=== PATIENT | male | born 1995 | race Caucasian/White ===

== ENCOUNTER 2018-11-03 10:20 | Inpatient (IN) | payer OTHER ==
[2018-11-03 10:43] VITALS: BMI 28.8
--- NOTE | 2018-11-03 13:14 | HP ---
COWS - Scale Resting Pulse: 0= [place] 80 or Below Sweatin= Chills/Flushing Restless Observation: 1= Difficult to Sit Still Pupil Size: 1= Pupils >than Normal Bone or Joint Aches: 1= Mild Discomfort Runny Nose/ Eye Tearin= Constantly Teary/Runny GI Upset > 30mins: 2= Nausea/Diarrhea Tremor Observation: 0= None Yawning Observation: 2= >3x During Session Anxiety or Irritability: 1=Feels Anxious/Irritable Goose Flesh Skin: 0=Smooth Skin COWS Score: 13 CIWA Score - Admission Criteria OASAS Guidelines: Admission for Medically Managed Detox: Requires at least one of the followin. CIWA greater than 12 2. Seizures within the past 24 hours 3. Delirium tremens within the past 24 hours 4. Hallucinations within the past 24 hours 5. Acute intervention needed for co occurring medical disorder 6. Acute intervention needed for co occurring psychiatric disorder 7. Severe withdrawal that cannot be handled at a lower level of care (continued vomiting, continued diarrhea, abnormal vital signs) requiring intravenous medication and/or fluids 8. Admission ROS [facility] - [facility] Chief Complaint: " heroin detox" Allergies/Adverse Reactions: Allergies Allergy/AdvReac Type Severity Reaction Status Date / Time No Known Allergies Allergy Verified 10/31/16 19:50 History of Present Illness: 23 yo male with hx of heroin (nasal) dependence is here seeking detox d/t withdrawal symptoms. last detox [facility] 2016. PMHX:asthma. Denies psychiatric hx . Denies suicidal / homicidal ideation. Denies hx of seizure or overdose. Longest period of sobriety about two months. Exam Limitations: No Limitations - Ebola screening Have you traveled outside of the country in the last 21 days: No Have you had contact with anyone from an Ebola affected area: No Have you been sick,other than usual withdrawal symptoms: No Do you have a fever: No - Review of Systems Constitutional: Loss of Appetite, Changes in sleep, Other (fatigue) EENT: reports: Nose Congestion (runny nose) Respiratory: reports: No Symptoms reported Cardiac: reports: No Symptoms Reported GI: reports: Poor Appetite, Poor Fluid Intake, Vomiting : reports: No Symptoms Reported Musculoskeletal: reports: Back Pain, Muscle Pain Integumentary: reports: No Symptoms Reported Neuro: reports: No Symptoms reported, Weakness Endocrine: reports: Increased Thirst Hematology: reports: No Symptoms Reported Psychiatric: reports: Orientated x3, Anxious Other Systems: Reviewed and Negative Patient History - Patient Medical History Hx Anemia: No Hx Asthma: Yes (MDI) Hx Chronic Obstructive Pulmonary Disease (COPD): No Hx Cancer: No Hx Cardiac Disorders: No Hx Congestive Heart Failure: No Hx Hypertension: No Hx Hypercholesterolemia: No Hx Pacemaker: No HX Cerebrovascular Accident: No Hx Seizures: No Hx Dementia: No Hx Diabetes: No Hx Gastrointestinal Disorders: Yes (gastritis;GERD) Hx Liver Disease: No Hx Genitourinary Disorders: No Hx Sexually Transmitted Disorders: No Hx Renal Disease (ESRD): No Hx Thyroid Disease: No Hx Human Immunodeficiency Virus (HIV): No (declines testing today ) Hx Hepatitis C: No Hx Depression: Yes Hx Suicide Attempt: No (DENIES) Hx Bipolar Disorder: No Hx Schizophrenia: No - Patient Surgical History Past Surgical History: No Hx Neurologic Surgery: No Hx Cataract Extraction: No Hx Cardiac Surgery: No Hx Lung Surgery: No Hx Breast Surgery: No Hx Breast Biopsy: No Hx Abdominal Surgery: No Hx Appendectomy: No Hx Cholecystectomy: No Hx Genitourinary Surgery: No Hx Section: No Hx Orthopedic Surgery: No Anesthesia Reaction: No - PPD History Previous Implant?: No Documented Results: Negative w/proof Date: 11/03/16 PPD to be Administered?: Yes - Smoking Cessation Smoking history: Former smoker Have you smoked in the past 12 months: Yes Aproximately how many cigarettes per day: 0 Cigars Per Day: 0 Hx Chewing Tobacco Use: No Initiated information on smoking cessation: No - Substance & Tx. History Hx Alcohol Use: No Hx Substance Use: Yes Substance Use Type: Heroin Hx Substance Use Treatment: Yes ([facility] Detox 2017) - Substances Abused heroin Route: Inhalation Frequency: Daily Amount used: 1 bundle Age of first use: 21 Date of Last Use: 11/02/18 Family Disease History - Family Disease History Family History: Denies Admission Physical Exam BHS - Vital Signs Vital Signs: Vital Signs - 24 hr 11/03/18 10:41 Temperature 98.1 F Pulse Rate 78 Respiratory 18 Rate Blood Pressure 104/61 - Physical General Appearance: Yes: Appropriately Dressed, Mild Distress, Sweating, Anxious HEENTM: Yes: EOMI, Hearing grossly Normal, Normal ENT Inspection, Normocephalic , Normal Voice, MINE, Pharynx Normal, Other (Cheilitis) Respiratory: Yes: Chest Non-Tender, Lungs Clear, No Respiratory Distress, No Accessory Muscle Use, Wheezing Neck: Yes: Within Normal Limits Breast: Yes: Breast Exam Deferred Cardiology: Yes: Regular Rhythm, Regular Rate Abdominal: Yes: Normal Bowel Sounds, Non Tender, Flat, Soft Genitourinary: Yes: Within Normal Limits Back: Yes: Normal Inspection Musculoskeletal: Yes: full range of Motion, Gait Steady, Pelvis Stable Extremities: Yes: Normal Capillary Refill, Normal Inspection, Normal Range of Motion, Non-Tender Neurological: Yes: Fully Oriented, Alert, Depressed Affect Integumentary: Yes: Normal Color, Warm, Diaphoresis Lymphatic: Yes: Within Normal Limits - Diagnostic (1) Anxious mood Current Visit: Yes Status: Acute (2) At risk for dehydration due to poor fluid intake Current Visit: Yes Status: Acute (3) Opioid dependence with withdrawal Current Visit: Yes Status: Acute (4) Asthma Current Visit: Yes Status: Chronic Qualifiers: Asthma severity: mild Asthma persistence: intermittent Asthma complication type: with status asthmaticus Qualified Code(s): J45.22 - Mild intermittent asthma with status asthmaticus Cleared for Admission [facility] - Detox or Rehab [facility] Level of Care: Medically Managed Detox Regimen/Protocol: Methadone [facility] Breath Alcohol Content Breath Alcohol Content: 0 Urine Drug Screen - Results Drug Screen Negative: No Urine Drug Screen Results: OPI-Opiates, OXY-Oxycodone, FEN-Fentanyl Inpatient Rehab Admission - Rehab Decision to Admit Inpatient rehab admission?: No
[2018-11-03] MEDS ORDERED: MAGNESIUM HYDROX 2400MG/30ML ORAL SUSPENSION 30 ML CUP PO PRN (13:16)
[2018-11-03] MEDS ORDERED: guaiFENesin 200 MG/10 ML 10 ML UNIT-DOSE CUPS PO PRN (13:16)
[2018-11-03] MEDS ORDERED: MAGNESIUM CITRATE 300 ML BOTTLE PO PRN (13:16)
[2018-11-03] MEDS ORDERED: METHOCARBAMOL 500 MG TABLET PO PRN (13:16)
[2018-11-03] MEDS ORDERED: hydrOXYzine PAMOATE 25 MG CAPSULE (FP) PO PRN (13:16)
[2018-11-03] MEDS ORDERED: ALBUTEROL SO4 8 GM HFA INHALER IH PRN (13:16)
[2018-11-03] MEDS ORDERED: ONDANSETRON *ODT* 4 MG TABLET SL PRN (13:16)
[2018-11-03] MEDS ORDERED: P-EPHED 60MG/TRIPROLIDI 2.5MG TABLET PO PRN (13:16)
[2018-11-03] MEDS ORDERED: MAG HYDROX/AL HYDROX/SIMETH 30 ML UNIT-DOSE CUP PO PRN (13:16)
[2018-11-03] MEDS ORDERED: BISMUTH SUBSALICYLATE 262 MG/15 ML BTL PO PRN (13:16)
[2018-11-03] MEDS ORDERED: IBUPROFEN 400 MG TABLET (FP) PO PRN (13:16)
[2018-11-03] MEDS ORDERED: ACETAMINOPHEN 325 MG TABLET (FP) PO PRN ×2 (13:16)
[2018-11-03] MEDS: cloNIDine HCL 0.1 MG TABLET PO PRN (16:43)
[2018-11-03] MEDS: MELATONIN 5 MG TABLETS PO PRN (22:21)
[2018-11-03] MEDS: THIAMINE HCL 100 MG TABLET (FP) PO SCH (22:21)
[2018-11-03] MEDS ORDERED: METHADONE HCL 10 MG TABLET (FOR DETOX USE ONLY) PO ONE (23:00)
[2018-11-04] MEDS ORDERED: METHADONE HCL 10 MG TABLET (FOR DETOX USE ONLY) PO ONE (10:00)
[2018-11-04] MEDS: PRENATAL VITAMINS W/ FOLIC ACID TABLET (FP) PO SCH (10:22)
[2018-11-04 10:27] LABS: HEMATOCRIT 41.7 % (35.4-49); MCH 29.3 pg (25.7-33.7); MCHC 33.7 g/dl (32.0-35.9); MEAN CELL VOLUME 86.9 fl (80-96); MEAN PLT VOLUME 9.1 fl (7.5-11.1); PLATELET COUNT 223 K/MM3 (134-434); RBC 4.79 M/mm3 (4.00-5.60); WHITE BLOOD COUNT 7.4 K/mm3 (4.0-10.0)
[2018-11-04 10:42] LABS: ALBUMIN 4.3 g/dl (3.4-5.0); ALK PHOS 98 U/L (45-117); ANION GAP 6 MMOL/L (8-16); BILIRUBIN,TOTAL 0.2 mg/dL (0.2-1); BLOOD UREA NITROGEN 16 mg/dL (7-18); CHLORIDE 103 mmol/L (98-107); CO2 31 mmol/L (21-32); CREATININE 0.9 mg/dL (0.55-1.3); GLUCOSE,RANDOM 81 mg/dL (74-106); POTASSIUM 4.3 mmol/L (3.5-5.1); SGOT/AST 25 U/L (15-37); SGPT/ALT 52 U/L (13-61); SODIUM 139 mmol/L (136-145); TOT PROT 7.8 g/dl (6.4-8.2)
--- NOTE | 2018-11-04 11:02 | CONSULT ---
[facility] Psychiatric Consult - Data Date of interview: 11/04/18 Admission source: [facility] Identifying data: Patient is a 23 year old single male, without children, unemployed, domiciled, and attends [facility]. This is one of multiple admissions for patient. Patient admitted to for opiate dependence. Substance Abuse History: - Smoking Cessation. Smoking history: Former smoker. Have you smoked in the past 12 months: Yes. Aproximately how many cigarettes per day: 0. Cigars Per Day: 0. Hx Chewing Tobacco Use: No. Initiated information on smoking cessation: No. - Substance & Tx. History. Hx Alcohol Use: No. Hx Substance Use: Yes. Substance Use Type: Heroin. Hx Substance Use Treatment: Yes ([facility] Detox 2017). - Substances Abused. heroin. Route: Inhalation. Frequency: Daily. Amount used: 1 bundle. Age of first use: 21. Date of Last Use: 11/02/18 Medical History: Asthma, GERD Psychiatric History: Patient denies h/o psychiatric hosipitalization, outpatient care, and suicide attempt. Patient reports poor sleep. Physical/Sexual Abuse/Trauma History: denies. Mental Status Exam - Mental Status Exam Alert and Oriented to: Time, Place, Person Cognitive Function: Good Patient Appearance: Well Groomed Mood: Sad Affect: Mood Congruent Patient Behavior: Cooperative Speech Pattern: Appropriate Voice Loudness: Normal Thought Process: Intact, Goal Oriented Thought Disorder: Not Present Hallucinations: Denies Suicidal Ideation: Denies Homicidal Ideation: Denies Insight/Judgement: Poor Sleep: Poorly Appetite: Fair Muscle strength/Tone: Normal Gait/Station: Normal Psychiatric Findings - Problem List ([place] 1, 2,3) (1) Substance-induced sleep disorder Current Visit: Yes Status: Acute (2) Opioid dependence with withdrawal Current Visit: Yes Status: Acute (3) Substance induced mood disorder Current Visit: No Status: Acute - Initial Treatment Plan Initial Treatment Plan: Psychoeducation provided. Detoxification in progress. Will order Belsomra 10mg qhs. Benefits and side effects discussed. Verbal consent given.
--- NOTE | 2018-11-04 13:37 | EKG ---
Test Reason : Blood Pressure : / mmHG Vent. Rate : 066 BPM Atrial Rate : 066 BPM P-R Int : 176 ms QRS Dur : 088 ms QT Int : 396 ms P-R-T Axes : 048 075 037 degrees QTc Int : 415 ms NORMAL SINUS RHYTHM WITH SINUS ARRHYTHMIA NORMAL ECG WHEN COMPARED WITH ECG OF 01-NOV-2016 17:08, NO SIGNIFICANT CHANGE WAS FOUND Confirmed by MD KATHE, VALENTIN ([id number]) on 11/04/2018 1:37:29 PM Referred By: Confirmed By:VALENTIN ARCHULETA MD
--- NOTE | 2018-11-04 15:47 | PN ---
BHS COWS - Scale Resting Pulse: 0= [place] 80 or Below Sweatin= Chills/Flushing Restless Observation: 0= Sits Still Pupil Size: 0= Normal to Room Light Bone or Joint Aches: 1= Mild Discomfort Runny Nose/ Eye Tearin= Nasal Congestion GI Upset > 30mins: 1= Stomach Cramp Tremor Observation of Outstretched Hands: 1= Tremor [place], Not Seen Yawning Observation: 2= >3x During Session Anxiety or Irritability: 2=Irritable/Anxious Goose Flesh Skin: 0=Smooth Skin COWS Score: 9 BHS Progress Note (SOAP) Subjective: body aches stuffy nose back pain muscle cramping Objective: 11/04/18 15:48 Vital Signs Temperature 96.8 F L 11/04/18 13:35 Pulse Rate 63 11/04/18 13:35 Respiratory Rate 18 11/04/18 13:35 Blood Pressure 106/62 11/04/18 13:35 O2 Sat by Pulse Oximetry (%) Laboratory Last Values WBC 7.4 K/mm3 (4.0-10.0) 11/04/18 06:00 RBC 4.79 M/mm3 (4.00-5.60) 11/04/18 06:00 Hgb 14.0 GM/dL (11.7-16.9) 11/04/18 06:00 Hct 41.7 % (35.4-49) 11/04/18 06:00 MCV 86.9 fl (80-96) 11/04/18 06:00 MCH 29.3 pg (25.7-33.7) 11/04/18 06:00 MCHC 33.7 g/dl (32.0-35.9) 11/04/18 06:00 RDW 13.0 % (11.9-15.9) 11/04/18 06:00 Plt Count 223 K/MM3 (134-434) 11/04/18 06:00 MPV 9.1 fl (7.5-11.1) 11/04/18 06:00 Sodium 139 mmol/L (136-145) 11/04/18 06:00 Potassium 4.3 mmol/L (3.5-5.1) 11/04/18 06:00 Chloride 103 mmol/L (98-107) 11/04/18 06:00 Carbon Dioxide 31 mmol/L (21-32) 11/04/18 06:00 Anion Gap 6 MMOL/L (8-16) L 11/04/18 06:00 BUN 16 mg/dL (7-18) 11/04/18 06:00 Creatinine 0.9 mg/dL (0.55-1.3) 11/04/18 06:00 Creat Clearance w eGFR > 60 (>60) 11/04/18 06:00 Random Glucose 81 mg/dL (74-106) 11/04/18 06:00 Calcium 9.0 mg/dL (8.5-10.1) 11/04/18 06:00 Total Bilirubin 0.2 mg/dL (0.2-1) 11/04/18 06:00 AST 25 U/L (15-37) 11/04/18 06:00 ALT 52 U/L (13-61) 11/04/18 06:00 Alkaline Phosphatase 98 U/L (45-117) 11/04/18 06:00 Total Protein 7.8 g/dl (6.4-8.2) 11/04/18 06:00 Albumin 4.3 g/dl (3.4-5.0) 11/04/18 06:00 RPR Titer Nonreactive (NONREACTIVE) 11/04/18 06:00 HIV 1&2 Antibody Screen Negative 11/03/18 14:30 HIV P24 Antigen Negative 11/03/18 14:30 lab noted Assessment: 11/04/18 15:48 withdrawal sx Plan: continue detox
[2018-11-04] MEDS: cloNIDine HCL 0.1 MG TABLET PO PRN (17:03)
[2018-11-04 17:34] LABS: URINE APPEARANCE CLEAR; URINE BILIRUBIN NEGATIVE (<2.0 mg/dL); URINE COLOR LTYELLOW; URINE GLUCOSE (UA) NEGATIVE (NEGATIVE); URINE KETONE NEGATIVE (NEGATIVE); URINE LEUK ESTERASE NEGATIVE (NEGATIVE); URINE NITRITE NEGATIVE (NEGATIVE); URINE PROTEIN NEGATIVE (NEGATIVE); URINE UROBILINOGEN NEGATIVE mg/dL (0.2-1.0)
[2018-11-04] MEDS: THIAMINE HCL 100 MG TABLET (FP) PO SCH (22:03)
[2018-11-04] MEDS: GABAPENTIN 100 MG CAPSULE (FP) PO SCH (22:03)
[2018-11-04] MEDS: SUVOREXANT 10 MG TABLET PO PRN (22:05)
[2018-11-05] MEDS: GABAPENTIN 100 MG CAPSULE (FP) PO SCH ×2 (06:22→13:09)
[2018-11-05] MEDS ORDERED: METHADONE HCL 10 MG TABLET (FOR DETOX USE ONLY) PO ONE (10:00)
[2018-11-05] MEDS: PRENATAL VITAMINS W/ FOLIC ACID TABLET (FP) PO SCH (10:28)
[2018-11-05] MEDS: hydrOXYzine PAMOATE 25 MG CAPSULE (FP) PO PRN ×2 (10:31→17:57)
--- NOTE | 2018-11-05 14:51 | PN ---
BHS COWS - Scale Resting Pulse: 0= [place] 80 or Below Sweatin= Chills/Flushing Restless Observation: 0= Sits Still Pupil Size: 0= Normal to Room Light Bone or Joint Aches: 1= Mild Discomfort Runny Nose/ Eye Tearin= Nasal Congestion GI Upset > 30mins: 1= Stomach Cramp Tremor Observation of Outstretched Hands: 1= Tremor [place], Not Seen Yawning Observation: 1= 1-2x During Session Anxiety or Irritability: 1=Feels Anxious/Irritable Goose Flesh Skin: 0=Smooth Skin COWS Score: 7 BHS Progress Note (SOAP) Subjective: tremor body ache muscle cramp sweating Objective: 11/05/18 14:52 Vital Signs Temperature 97.3 F L 11/05/18 13:20 Pulse Rate 71 11/05/18 13:20 Respiratory Rate 18 11/05/18 13:20 Blood Pressure 108/70 11/05/18 13:20 O2 Sat by Pulse Oximetry (%) Laboratory Last Values WBC 7.4 K/mm3 (4.0-10.0) 11/04/18 06:00 RBC 4.79 M/mm3 (4.00-5.60) 11/04/18 06:00 Hgb 14.0 GM/dL (11.7-16.9) 11/04/18 06:00 Hct 41.7 % (35.4-49) 11/04/18 06:00 MCV 86.9 fl (80-96) 11/04/18 06:00 MCH 29.3 pg (25.7-33.7) 11/04/18 06:00 MCHC 33.7 g/dl (32.0-35.9) 11/04/18 06:00 RDW 13.0 % (11.9-15.9) 11/04/18 06:00 Plt Count 223 K/MM3 (134-434) 11/04/18 06:00 MPV 9.1 fl (7.5-11.1) 11/04/18 06:00 Sodium 139 mmol/L (136-145) 11/04/18 06:00 Potassium 4.3 mmol/L (3.5-5.1) 11/04/18 06:00 Chloride 103 mmol/L (98-107) 11/04/18 06:00 Carbon Dioxide 31 mmol/L (21-32) 11/04/18 06:00 Anion Gap 6 MMOL/L (8-16) L 11/04/18 06:00 BUN 16 mg/dL (7-18) 11/04/18 06:00 Creatinine 0.9 mg/dL (0.55-1.3) 11/04/18 06:00 Creat Clearance w eGFR > 60 (>60) 11/04/18 06:00 Random Glucose 81 mg/dL (74-106) 11/04/18 06:00 Calcium 9.0 mg/dL (8.5-10.1) 11/04/18 06:00 Total Bilirubin 0.2 mg/dL (0.2-1) 11/04/18 06:00 AST 25 U/L (15-37) 11/04/18 06:00 ALT 52 U/L (13-61) 11/04/18 06:00 Alkaline Phosphatase 98 U/L (45-117) 11/04/18 06:00 Total Protein 7.8 g/dl (6.4-8.2) 11/04/18 06:00 Albumin 4.3 g/dl (3.4-5.0) 11/04/18 06:00 Urine Color Ltyellow 11/04/18 15:45 Urine Appearance Clear 11/04/18 15:45 Urine pH 6.0 (5.0-8.0) 11/04/18 15:45 Ur Specific [place] 1.021 (1.010-1.035) 11/04/18 15:45 Urine Protein Negative (NEGATIVE) 11/04/18 15:45 Urine Glucose (UA) Negative (NEGATIVE) 11/04/18 15:45 Urine Ketones Negative (NEGATIVE) 11/04/18 15:45 Urine Blood Negative (NEGATIVE) 11/04/18 15:45 Urine Nitrite Negative (NEGATIVE) 11/04/18 15:45 Urine Bilirubin Negative (<2.0 mg/dL) 11/04/18 15:45 Urine Urobilinogen Negative mg/dL (0.2-1.0) 11/04/18 15:45 Ur Leukocyte Esterase Negative (NEGATIVE) 11/04/18 15:45 RPR Titer Nonreactive (NONREACTIVE) 11/04/18 06:00 HIV 1&2 Antibody Screen Negative 11/03/18 14:30 HIV P24 Antigen Negative 11/03/18 14:30 lab noted Assessment: 11/05/18 14:52 wtihdrawal sx Plan: continue detox
[2018-11-05] MEDS ORDERED: GABAPENTIN 100 MG CAPSULE (FP) PO PRN (19:13)
[2018-11-05] MEDS: THIAMINE HCL 100 MG TABLET (FP) PO SCH (21:57)
[2018-11-05] MEDS: MELATONIN 5 MG TABLETS PO PRN (21:57)
[2018-11-05] MEDS: SUVOREXANT 10 MG TABLET PO PRN (21:57)
[2018-11-06 09:15] VITALS: BP 110/72; PULSE 86; TEMP 97.4
[2018-11-06] MEDS: PRENATAL VITAMINS W/ FOLIC ACID TABLET (FP) PO SCH (09:32)
[2018-11-06] MEDS ORDERED: METHADONE HCL 10 MG TABLET (FOR DETOX USE ONLY) PO ONE (10:00)
--- NOTE | 2018-11-06 18:49 | PN ---
BHS Progress Note (SOAP) Subjective: Patient denies current Withdrawal / Detox symptoms and reports that he feels well overall. Objective: PATIENT A & O X 3, OBSERVED AMBULATING ON UNIT. IN NO ACUTE DISTRESS. 11/06/18 18:47 Vital Signs Temperature 97.4 F L 11/06/18 09:14 Pulse Rate 86 11/06/18 09:14 Respiratory Rate 18 11/06/18 09:14 Blood Pressure 110/72 11/06/18 09:14 O2 Sat by Pulse Oximetry (%) Laboratory Tests 11/03/18 11/04/18 11/04/18 14:30 06:00 06:00 WBC 7.4 RBC 4.79 Hgb 14.0 Hct 41.7 MCV 86.9 MCH 29.3 MCHC 33.7 RDW 13.0 Plt Count 223 MPV 9.1 Sodium 139 Potassium 4.3 Chloride 103 Carbon Dioxide 31 Anion Gap 6 L BUN 16 Creatinine 0.9 Creat Clearance w eGFR > 60 Random Glucose 81 Calcium 9.0 Total Bilirubin 0.2 AST 25 ALT 52 Alkaline Phosphatase 98 Total Protein 7.8 Albumin 4.3 Urine Color Urine Appearance Urine pH Ur Specific [place] Urine Protein Urine Glucose (UA) Urine Ketones Urine Blood Urine Nitrite Urine Bilirubin Urine Urobilinogen Ur Leukocyte Esterase RPR Titer HIV 1&2 Antibody Screen Negative HIV P24 Antigen Negative 11/04/18 11/04/18 06:00 15:45 WBC RBC Hgb Hct MCV MCH MCHC RDW Plt Count MPV Sodium Potassium Chloride Carbon Dioxide Anion Gap BUN Creatinine Creat Clearance w eGFR Random Glucose Calcium Total Bilirubin AST ALT Alkaline Phosphatase Total Protein Albumin Urine Color Ltyellow Urine Appearance Clear Urine pH 6.0 Ur Specific [place] 1.021 Urine Protein Negative Urine Glucose (UA) Negative Urine Ketones Negative Urine Blood Negative Urine Nitrite Negative Urine Bilirubin Negative Urine Urobilinogen Negative Ur Leukocyte Esterase Negative RPR Titer Nonreactive HIV 1&2 Antibody Screen HIV P24 Antigen LABS NOTED. Assessment: 11/06/18 18:48 COMPLETION OF DETOX REGIMEN. Plan: PATIENT DENIES CURRENT WITHDRAWAL SYMPTOMS AND REPORTS THAT HE FEELS WELL OVERALL. AT PATIENT'S REQUEST, PATIENT GRANTED EARLY DISCHARGE FROM DETOX UNIT.
--- NOTE | 2018-11-06 18:54 | DS ---
[facility] Detox Discharge Summary Admission Date: 11/03/18 Discharge Date: 11/06/18 - History Present History: Opioid Dependence Additional Comments: PATIENT DENIES CURRENT DETOX / WITHDRAWAL SYMPTOMS AND REPORTS THAT HE FEELS WELL OVERALL. AT PATIENT'S REQUEST, PATIENT GRANTED EARLY DISCHARGE FROM DETOX UNIT. PATIENT WILL GO TO [facility] ([place], [place]) FOR AFTERCARE. PATIENT DECLINED OFFER OF MEDICATION PRESCRIPTION FOR HOME MEDICATION (INCLUDING NARCAN KIT) AT TIME OF DISCHARGE FROM DETOX, NOTING THAT HE CURRENTLY HAS ADEQUATE SUPPLIES OF ALL PRESCRIBED HOME MEDICATIONS AT HOME. PATIENT WAS DISCHARGED FROM DETOX UNIT IN STABLE MEDICAL CONDITION. Pertinent Past History: Asthma, G.E.R.D., History of Gastritis, History of Depression, - Physical Exam Results Vital Signs: Vital Signs Temperature 97.4 F L 11/06/18 09:14 Pulse Rate 86 11/06/18 09:14 Respiratory Rate 18 11/06/18 09:14 Blood Pressure 110/72 11/06/18 09:14 O2 Sat by Pulse Oximetry (%) Pertinent Admission Physical Exam Findings: WITHDRAWAL SYMPTOMS. Laboratory Tests 11/03/18 11/04/18 11/04/18 14:30 06:00 06:00 WBC 7.4 RBC 4.79 Hgb 14.0 Hct 41.7 MCV 86.9 MCH 29.3 MCHC 33.7 RDW 13.0 Plt Count 223 MPV 9.1 Sodium 139 Potassium 4.3 Chloride 103 Carbon Dioxide 31 Anion Gap 6 L BUN 16 Creatinine 0.9 Creat Clearance w eGFR > 60 Random Glucose 81 Calcium 9.0 Total Bilirubin 0.2 AST 25 ALT 52 Alkaline Phosphatase 98 Total Protein 7.8 Albumin 4.3 Urine Color Urine Appearance Urine pH Ur Specific [place] Urine Protein Urine Glucose (UA) Urine Ketones Urine Blood Urine Nitrite Urine Bilirubin Urine Urobilinogen Ur Leukocyte Esterase RPR Titer HIV 1&2 Antibody Screen Negative HIV P24 Antigen Negative 11/04/18 11/04/18 06:00 15:45 WBC RBC Hgb Hct MCV MCH MCHC RDW Plt Count MPV Sodium Potassium Chloride Carbon Dioxide Anion Gap BUN Creatinine Creat Clearance w eGFR Random Glucose Calcium Total Bilirubin AST ALT Alkaline Phosphatase Total Protein Albumin Urine Color Ltyellow Urine Appearance Clear Urine pH 6.0 Ur Specific [place] 1.021 Urine Protein Negative Urine Glucose (UA) Negative Urine Ketones Negative Urine Blood Negative Urine Nitrite Negative Urine Bilirubin Negative Urine Urobilinogen Negative Ur Leukocyte Esterase Negative RPR Titer Nonreactive HIV 1&2 Antibody Screen HIV P24 Antigen LABS NOTED. - Treatment Hospital Course: Detox Protocol Followed, Detoxed Safely, Responded well, Discharged Condition Good Patient has Accepted a Rehab Referral to: PT. GOING TO [facility] ([place], [place]). - Medication Discharge Medications: Ambulatory Orders Albuterol Sulfate Inhaler - [Ventolin HFA Inhaler -] 2 puff IH Q4H PRN #1 inhaler 11/06/16 Naloxone HCl [Narcan] 4 mg NS ASDIR PRN 11/04/18 - Diagnosis (1) Anxious mood Status: Acute (2) At risk for dehydration due to poor fluid intake Status: Acute (3) Opioid dependence with withdrawal Status: Acute (4) Substance induced mood disorder Status: Acute (5) Substance-induced sleep disorder Status: Acute (6) Asthma Status: Chronic Qualifiers: Asthma severity: mild Asthma persistence: intermittent Asthma complication type: with status asthmaticus Qualified Code(s): J45.22 - Mild intermittent asthma with status asthmaticus - AMA Did Patient Leave Against Medical Advice: No
[2018-11-07] MEDS ORDERED: METHADONE HCL 5 MG TABLET (FOR DETOX USE ONLY) PO ONE (06:00)
== END 2018-11-06 13:32 | disposition home or self-care (01) | DRG 897 ==
LOC: YASAS 10:20 → Y3N 14:58
PROVIDERS: ADMIT Surgery; ATTEND Surgery
PROC: HZ2ZZZZ Detoxification Services for Substance Abuse Treatment (ICD-10-PCS; principal; 2018-11-03)
DX: F11.23 Opioid dependence with withdrawal (principal); F19.282 Other psychoactive substance dependence with psychoactive substance-induced sleep disorder; J45.22 Mild intermittent asthma with status asthmaticus; F19.24 Other psychoactive substance dependence with psychoactive substance-induced mood disorder; F41.9 Anxiety disorder, unspecified; R63.8 Other symptoms and signs concerning food and fluid intake; K21.9 Gastro-esophageal reflux disease without esophagitis; Z87.891 Personal history of nicotine dependence
CPT/HCPCS: 36415; 80053; 81003; 85027; 86593; 87389; 93005; 93010; J0735

== ENCOUNTER 2019-04-22 09:25 | Inpatient (IN) | payer OTHER ==
[2019-04-22 10:05] VITALS: BMI 27.4
--- NOTE | 2019-04-22 11:26 | HP ---
COWS - Scale Resting Pulse: 0= [place] 80 or Below Sweatin=Flushed/Facial Moisture Restless Observation: 1= Difficult to Sit Still Pupil Size: 1= Pupils >than Normal Bone or Joint Aches: 2= Severe Diffuse Aches Runny Nose/ Eye Tearin= Runny Nose/Eyes GI Upset > 30mins: 2= Nausea/Diarrhea Tremor Observation: 1= Tremor [place], Not Seen Yawning Observation: 1= 1-2x During Session Anxiety or Irritability: 1=Feels Anxious/Irritable Goose Flesh Skin: 0=Smooth Skin COWS Score: 13 CIWA Score - Admission Criteria OASAS Guidelines: Admission for Medically Managed Detox: Requires at least one of the followin. CIWA greater than 12 2. Seizures within the past 24 hours 3. Delirium tremens within the past 24 hours 4. Hallucinations within the past 24 hours 5. Acute intervention needed for co occurring medical disorder 6. Acute intervention needed for co occurring psychiatric disorder 7. Severe withdrawal that cannot be handled at a lower level of care (continued vomiting, continued diarrhea, abnormal vital signs) requiring intravenous medication and/or fluids 8. Admission ROS [facility] Allergies/Adverse Reactions: Allergies Allergy/AdvReac Type Severity Reaction Status Date / Time lentils Allergy Hives Verified 04/22/19 10:00 No Known Drug Allergies Allergy Verified 04/22/19 10:00 History of Present Illness: 23 year old male with opioid dependence last here in October 2018. Patient is using 5-10 bags per day, last used late last night Patient denies other illicit substances: Cocaine, Marijuana, etc. Patient smokes ciggarettes sporadically once a week. PMH: Asthma, Gastritis Psurg Hx: None Psych Hx: None Meds: Ventolin prn. All: NKDA Domiciled with mother, she is his support systems. Patient has no pending legal issues. - Ebola screening Have you traveled outside of the country in the last 21 days: No Have you had contact with anyone from an Ebola affected area: No Have you been sick,other than usual withdrawal symptoms: No Do you have a fever: No - Review of Systems Constitutional: Chills, Diaphoresis EENT: reports: No Symptoms Reported Respiratory: reports: Wheezing GI: reports: Nausea : reports: No Symptoms Reported Musculoskeletal: reports: Muscle Pain Integumentary: reports: No Symptoms Reported Neuro: reports: No Symptoms reported Endocrine: reports: No Symptoms Reported Hematology: reports: No Symptoms Reported Psychiatric: reports: Judgement Intact, Mood/Affect Appropiate, Orientated x3, Agitated, Anxious Other Systems: Reviewed and Negative Patient History - Patient Medical History Hx Anemia: No Hx Asthma: Yes Hx Chronic Obstructive Pulmonary Disease (COPD): No Hx Cancer: No Hx Cardiac Disorders: No Hx Congestive Heart Failure: No Hx Hypertension: No Hx Hypercholesterolemia: No Hx Pacemaker: No HX Cerebrovascular Accident: No Hx Seizures: No Hx Dementia: No Hx Diabetes: No Hx Gastrointestinal Disorders: Yes (gastritis) Hx Liver Disease: No Hx Genitourinary Disorders: No Hx Sexually Transmitted Disorders: No Hx Renal Disease (ESRD): No Hx Thyroid Disease: No Hx Human Immunodeficiency Virus (HIV): No (declines testing today ) Hx Hepatitis C: No Hx Depression: No Hx Suicide Attempt: No Hx Bipolar Disorder: No Hx Schizophrenia: No - Patient Surgical History Past Surgical History: No Hx Neurologic Surgery: No Hx Cataract Extraction: No Hx Cardiac Surgery: No Hx Lung Surgery: No Hx Breast Surgery: No Hx Breast Biopsy: No Hx Abdominal Surgery: No Hx Appendectomy: No Hx Cholecystectomy: No Hx Genitourinary Surgery: No Hx Section: No Hx Orthopedic Surgery: No Anesthesia Reaction: No - PPD History Previous Implant?: Yes Documented Results: Negative w/proof Implanted On Prior R Admission?: Yes Date: 11/05/18 Results: 0 mm PPD to be Administered?: No - Reproductive History Patient is a Female of Child Bearing Age (11 -55 yrs old): No - Smoking Cessation Smoking history: Former smoker Have you smoked in the past 12 months: Yes Aproximately how many cigarettes per day: 3 If you are a former smoker, when did you quit?: 12/2017 Cigars Per Day: 0 Hx Chewing Tobacco Use: No Initiated information on smoking cessation: Yes 'Breaking Loose' booklet given: 04/22/19 - Substance & Tx. History Hx Alcohol Use: No Hx Substance Use: Yes Substance Use Type: Heroin - Substances abused Heroin Substance route: Inhalation Frequency: Daily Amount used: 5-10 BAGS Age of first use: 21 Date of last use: 04/21/19 Family Disease History - Family Disease History Family Disease History: Heart Disease: Mother (hernia, cholesterol, thyroid, prediabetic), Other: Mother Admission Physical Exam BHS - Vital Signs Vital Signs: Vital Signs - 24 hr 04/22/19 09:55 Temperature 98.1 F Pulse Rate 67 Respiratory 18 Rate Blood Pressure 130/75 Cleared for Admission [facility] - Detox or Rehab [facility] Level of Care: Medically Managed Detox Regimen/Protocol: Methadone Claeared for Rehab Admission: No Screened but not Admitted - Documentation of Visit Screened but not Admitted: No Breathalyzer - Breathalyzer Breathalyzer: 0 Vital Signs - Vital Signs Vital signs refused: No Temperature: 98.1 F Temperature source: Oral Pulse Rate: 67 Respiratory Rate: 18 Blood Pressure: 130/75 BP Location: Left Arm Blood Pressure position: Sitting - Height Height: 5 ft 5 in - Weight Weight: 165 lb Weight measurement method: Standing scale - BMI Body Mass Index (BMI): 27.4 - Bowel Function Bowel Movement: No Inpatient Rehab Admission - Rehab Decision to Admit Inpatient rehab admission?: No
[2019-04-22] MEDS ORDERED: BISMUTH SUBSALICYLATE 524 MG/30 ML UD PO PRN (11:32)
[2019-04-22] MEDS ORDERED: ALBUTEROL SO4 8 GM HFA INHALER IH PRN (11:32)
[2019-04-22] MEDS ORDERED: MAGNESIUM HYDROX 2400MG/30ML ORAL SUSPENSION 30 ML CUP PO PRN (11:32)
[2019-04-22] MEDS ORDERED: MAGNESIUM CITRATE 300 ML BOTTLE PO PRN (11:32)
[2019-04-22] MEDS ORDERED: hydrOXYzine PAMOATE 25 MG CAPSULE (FP) PO PRN (11:32)
[2019-04-22] MEDS ORDERED: MAG HYDROX/AL HYDROX/SIMETH 30 ML UNIT-DOSE CUP PO PRN (11:32)
[2019-04-22] MEDS ORDERED: cloNIDine HCL 0.1 MG TABLET PO PRN (11:32)
[2019-04-22] MEDS ORDERED: MENTHOL/PHENOL 1 EACH UD MM PRN (11:32)
[2019-04-22] MEDS ORDERED: METHOCARBAMOL 500 MG TABLET PO PRN (11:32)
[2019-04-22] MEDS ORDERED: ACETAMINOPHEN 325 MG TABLET (FP) PO PRN ×2 (11:32)
[2019-04-22] MEDS ORDERED: IBUPROFEN 400 MG TABLET (FP) PO PRN (11:32)
[2019-04-22] MEDS ORDERED: METHADONE HCL 10 MG TABLET (FOR DETOX USE ONLY) PO ONE (13:30)
[2019-04-22 14:26] LABS: HEMATOCRIT 39.7 % (35.4-49); HEMOGLOBIN 13.2 GM/dL (11.7-16.9); MCH 28.8 pg (25.7-33.7); MCHC 33.2 g/dl (32.0-35.9); MEAN CELL VOLUME 86.8 fl (80-96); MEAN PLT VOLUME 8.7 fl (7.5-11.1); PLATELET COUNT 245 K/MM3 (134-434); RBC 4.57 M/mm3 (4.00-5.60); RDW 13.3 % (11.9-15.9); WHITE BLOOD COUNT 7.8 K/mm3 (4.0-10.0)
[2019-04-22 14:45] LABS: BILIRUBIN,TOTAL 0.2 mg/dL (0.2-1); BLOOD UREA NITROGEN 13.6 mg/dL (7-18); POTASSIUM 4.4 mmol/L (3.5-5.1)
[2019-04-22] MEDS: THIAMINE HCL 100 MG TABLET (FP) PO SCH (22:11)
[2019-04-22] MEDS: MELATONIN 5 MG TABLETS PO PRN (22:11)
[2019-04-23] MEDS ORDERED: METHADONE HCL 5 MG TABLET (FOR DETOX USE ONLY) ONE (08:22)
[2019-04-23] MEDS ORDERED: METHADONE HCL 10 MG TABLET (FOR DETOX USE ONLY) ONE (08:22)
--- NOTE | 2019-04-23 09:24 | CONSULT ---
[facility] Psychiatric Consult - Data Date of interview: 04/23/19 Admission source: [facility] Identifying data: Patient is a 23 year old single male, without children, unemployed, domiciled, and is supported by financial savings. This is one of multiple admissions for patient. Patient admitted to for opiate dependence. Substance Abuse History: - Smoking Cessation. Smoking history: Former smoker. Have you smoked in the past 12 months: Yes. Aproximately how many cigarettes per day: 3. If you are a former smoker, when did you quit?: 12/2017. Cigars Per Day: 0. Hx Chewing Tobacco Use: No. Initiated information on smoking cessation: Yes. 'Breaking Loose' booklet given: 04/22/19. - Substance & Tx. History. Hx Alcohol Use: No. Hx Substance Use: Yes. Substance Use Type: Heroin. - Substances abused. Heroin. Substance route: Inhalation. Frequency: Daily. Amount used: 5-10 BAGS. Age of first use: 21. Date of last use: 04/21/19 Medical History: Asthma, gastritis Psychiatric History: Patient denies h/o psychiatric hospitalizations, outpatient care, and suicide attempt. At present patient reports feeling anxious and is experiencing difficulty sleeping. Physical/Sexual Abuse/Trauma History: denies. Mental Status Exam - Mental Status Exam Alert and Oriented to: Time, Place, Person Cognitive Function: Good Patient Appearance: Well Groomed Mood: Euthymic Affect: Mood Congruent Patient Behavior: Cooperative Speech Pattern: Appropriate Voice Loudness: Normal Thought Process: Goal Oriented Thought Disorder: Not Present Hallucinations: Denies Suicidal Ideation: Denies Homicidal Ideation: Denies Insight/Judgement: Poor Sleep: Poorly Appetite: Fair Muscle strength/Tone: Normal Gait/Station: Normal Psychiatric Findings - Problem List (Otto 1, 2,3) (1) Substance-induced anxiety disorder Current Visit: Yes Status: Acute (2) Opioid dependence with withdrawal Current Visit: Yes Status: Chronic (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 Detoxification in progress. Will order Belsomra 10mg HS prn (patient accepted belsomra during previous admission and stated it was effective. Will d/c 25mg q6h and order vistaril 50mg q6h for anxiety. Benefits and side effects discussed. Verbal consent given.
[2019-04-23] MEDS: PRENATAL VITAMINS W/ FOLIC ACID TABLET (FP) PO SCH (09:33)
[2019-04-23] MEDS ORDERED: hydrOXYzine PAMOATE 50 MG CAPSULE (FP) PO PRN (09:33)
[2019-04-23] MEDS ORDERED: METHADONE (DETOX) 20 MG, METHADONE (DETOX) 5 MG PO ONE (10:00)
--- NOTE | 2019-04-23 12:34 | PN ---
[facility] COWS - Scale Resting Pulse: 0= [place] 80 or Below Sweatin= Chills/Flushing Restless Observation: 0= Sits Still Pupil Size: 1= Pupils >than Normal Bone or Joint Aches: 1= Mild Discomfort Runny Nose/ Eye Tearin= Nasal Congestion GI Upset > 30mins: 1= Stomach Cramp Tremor Observation of Outstretched Hands: 2= Slight Tremor Visible Yawning Observation: 0= None Anxiety or Irritability: 2=Irritable/Anxious Goose Flesh Skin: 3=Piloerection COWS Score: 12 S Progress Note (SOAP) Subjective: 23 years old male admitted on 04/22/19 for opiate withdrawal sx management doing well with methadone detox regimen ambulating on hallway steady gait discuss medication assisted treatment program patient may consider continue emphasizing the benefits of MAT Objective: 04/23/19 12:35 Vital Signs Temperature 97.1 F L 04/23/19 09:07 Pulse Rate 70 04/23/19 09:07 Respiratory Rate 20 04/23/19 09:07 Blood Pressure 112/71 04/23/19 09:07 O2 Sat by Pulse Oximetry (%) Laboratory Last Values WBC 7.8 K/mm3 (4.0-10.0) 04/22/19 11:50 RBC 4.57 M/mm3 (4.00-5.60) 04/22/19 11:50 Hgb 13.2 GM/dL (11.7-16.9) 04/22/19 11:50 Hct 39.7 % (35.4-49) 04/22/19 11:50 MCV 86.8 fl (80-96) 04/22/19 11:50 MCH 28.8 pg (25.7-33.7) 04/22/19 11:50 MCHC 33.2 g/dl (32.0-35.9) 04/22/19 11:50 RDW 13.3 % (11.9-15.9) 04/22/19 11:50 Plt Count 245 K/MM3 (134-434) 04/22/19 11:50 MPV 8.7 fl (7.5-11.1) 04/22/19 11:50 Sodium 138 mmol/L (136-145) 04/22/19 11:50 Potassium 4.4 mmol/L (3.5-5.1) 04/22/19 11:50 Chloride 101 mmol/L (98-107) 04/22/19 11:50 Carbon Dioxide 31 mmol/L (21-32) 04/22/19 11:50 Anion Gap 6 MMOL/L (8-16) L 04/22/19 11:50 BUN 13.6 mg/dL (7-18) 04/22/19 11:50 Creatinine 1.0 mg/dL (0.55-1.3) 04/22/19 11:50 Est GFR (CKD-EPI)AfAm 122.41 04/22/19 11:50 Est GFR (CKD-EPI)NonAf 105.62 04/22/19 11:50 Random Glucose 83 mg/dL (74-106) 04/22/19 11:50 Calcium 9.0 mg/dL (8.5-10.1) 04/22/19 11:50 Total Bilirubin 0.2 mg/dL (0.2-1) 04/22/19 11:50 AST 18 U/L (15-37) 04/22/19 11:50 ALT 31 U/L (13-61) 04/22/19 11:50 Alkaline Phosphatase 107 U/L (45-117) 04/22/19 11:50 Total Protein 7.0 g/dl (6.4-8.2) 04/22/19 11:50 Albumin 4.0 g/dl (3.4-5.0) 04/22/19 11:50 RPR Titer Nonreactive (NONREACTIVE) 04/22/19 11:50 lab noted Assessment: 04/23/19 12:36 opiate withdrawal sx alert oriented x 3 speech clearly coherently Plan: continue methadone detox regimen
[2019-04-23] MEDS: THIAMINE HCL 100 MG TABLET (FP) PO SCH (22:13)
[2019-04-23] MEDS: SUVOREXANT 10 MG TABLET PO PRN (22:15)
[2019-04-23] MEDS: MELATONIN 5 MG TABLETS PO PRN (22:15)
[2019-04-24] MEDS ORDERED: METHADONE HCL 10 MG TABLET (FOR DETOX USE ONLY) PO ONE (10:00)
[2019-04-24] MEDS: PRENATAL VITAMINS W/ FOLIC ACID TABLET (FP) PO SCH (10:20)
--- NOTE | 2019-04-24 13:45 | PN ---
[facility] CIWA - CIWA Score Nausea/Vomitin-Mild Nausea/No Vomiting Muscle Tremors: 2 Anxiety: 2 Agitation: 2 Paroxysmal Sweats: No Perspiration Orientation: 0-Oriented Tacttile Disturbances: 1-Very Mild Itch/Numbness Auditory Disturbances: 0-None Visual Disturbances: 0-None Headache: 2-Mild CIWA-Ar Total Score: 10 [facility] COWS - Scale Resting Pulse: 0= [place] 80 or Below Sweatin= Chills/Flushing Restless Observation: 1= Difficult to Sit Still Pupil Size: 1= Pupils >than Normal Bone or Joint Aches: 2= Severe Diffuse Aches Runny Nose/ Eye Tearin= Nasal Congestion GI Upset > 30mins: 1= Stomach Cramp Tremor Observation of Outstretched Hands: 1= Tremor [place], Not Seen Yawning Observation: 1= 1-2x During Session Anxiety or Irritability: 2=Irritable/Anxious Goose Flesh Skin: 0=Smooth Skin COWS Score: 11 [facility] Progress Note (SOAP) Subjective: alert,irritable,anxious,interrupted sleep,tremor,pain in the body and back Objective: 04/24/19 13:44 Vital Signs Temperature 97.8 F 04/24/19 09:45 Pulse Rate 70 04/24/19 09:45 Respiratory Rate 16 04/24/19 09:45 Blood Pressure 100/66 04/24/19 09:45 O2 Sat by Pulse Oximetry (%) 04/24/19 13:44 Laboratory Last Values WBC 7.8 K/mm3 (4.0-10.0) 04/22/19 11:50 RBC 4.57 M/mm3 (4.00-5.60) 04/22/19 11:50 Hgb 13.2 GM/dL (11.7-16.9) 04/22/19 11:50 Hct 39.7 % (35.4-49) 04/22/19 11:50 MCV 86.8 fl (80-96) 04/22/19 11:50 MCH 28.8 pg (25.7-33.7) 04/22/19 11:50 MCHC 33.2 g/dl (32.0-35.9) 04/22/19 11:50 RDW 13.3 % (11.9-15.9) 04/22/19 11:50 Plt Count 245 K/MM3 (134-434) 04/22/19 11:50 MPV 8.7 fl (7.5-11.1) 04/22/19 11:50 Sodium 138 mmol/L (136-145) 04/22/19 11:50 Potassium 4.4 mmol/L (3.5-5.1) 04/22/19 11:50 Chloride 101 mmol/L (98-107) 04/22/19 11:50 Carbon Dioxide 31 mmol/L (21-32) 04/22/19 11:50 Anion Gap 6 MMOL/L (8-16) L 04/22/19 11:50 BUN 13.6 mg/dL (7-18) 04/22/19 11:50 Creatinine 1.0 mg/dL (0.55-1.3) 04/22/19 11:50 Est GFR (CKD-EPI)AfAm 122.41 04/22/19 11:50 Est GFR (CKD-EPI)NonAf 105.62 04/22/19 11:50 Random Glucose 83 mg/dL (74-106) 04/22/19 11:50 Calcium 9.0 mg/dL (8.5-10.1) 04/22/19 11:50 Total Bilirubin 0.2 mg/dL (0.2-1) 04/22/19 11:50 AST 18 U/L (15-37) 04/22/19 11:50 ALT 31 U/L (13-61) 04/22/19 11:50 Alkaline Phosphatase 107 U/L (45-117) 04/22/19 11:50 Total Protein 7.0 g/dl (6.4-8.2) 04/22/19 11:50 Albumin 4.0 g/dl (3.4-5.0) 04/22/19 11:50 RPR Titer Nonreactive (NONREACTIVE) 04/22/19 11:50 Assessment: 04/24/19 13:44 withdrawal symptom Plan: continue detox methadone and librium regimen
--- NOTE | 2019-04-24 13:49 | PN ---
BHS Progress Note Note: patient is on methadone regimen
[2019-04-24] MEDS: THIAMINE HCL 100 MG TABLET (FP) PO SCH (22:00)
[2019-04-24] MEDS: SUVOREXANT 10 MG TABLET PO PRN (22:00)
[2019-04-24] MEDS: MELATONIN 5 MG TABLETS PO PRN (22:00)
[2019-04-25] MEDS ORDERED: METHADONE HCL 10 MG TABLET (FOR DETOX USE ONLY) ONE (09:18)
[2019-04-25] MEDS ORDERED: METHADONE HCL 5 MG TABLET (FOR DETOX USE ONLY) ONE (09:18)
[2019-04-25] MEDS ORDERED: METHADONE (DETOX) 10 MG, METHADONE (DETOX) 5 MG PO ONE (10:00)
[2019-04-25] MEDS: PRENATAL VITAMINS W/ FOLIC ACID TABLET (FP) PO SCH (10:18)
--- NOTE | 2019-04-25 15:31 | PN ---
[facility]HS COWS - Scale Resting Pulse: 0= [place] 80 or Below Sweatin= Chills/Flushing Restless Observation: 3= Extraneous Movement Pupil Size: 0= Normal to Room Light Bone or Joint Aches: 1= Mild Discomfort Runny Nose/ Eye Tearin= None GI Upset > 30mins: 0= None Tremor Observation of Outstretched Hands: 1= Tremor [place], Not Seen Yawning Observation: 1= 1-2x During Session Anxiety or Irritability: 1=Feels Anxious/Irritable Goose Flesh Skin: 0=Smooth Skin COWS Score: 8 BHS Progress Note (SOAP) Subjective: 23 y/o male with opioid depencence. c/o slight anxiety,and reports methadone taper/protocol effective. Objective: Alert o x 3 Verbalized needs Vital Signs - 24 hr 04/24/19 04/24/19 04/25/19 17:58 21:34 00:30 Temperature 97.5 F L 97.5 F L Pulse Rate 64 67 Respiratory 18 18 18 Rate Blood Pressure 96/56 L 118/72 04/25/19 04/25/19 04/25/19 03:30 06:06 09:10 Temperature 97.1 F L 97.3 F L Pulse Rate 58 L 77 Respiratory 18 18 18 Rate Blood Pressure 105/56 L 108/67 04/25/19 04/25/19 13:05 13:16 Temperature 98.1 F 98.1 F Pulse Rate 63 63 Respiratory 18 18 Rate Blood Pressure 104/68 104/68 Laboratory Tests 04/22/19 04/22/19 04/22/19 11:50 11:50 11:50 WBC 7.8 RBC 4.57 Hgb 13.2 Hct 39.7 MCV 86.8 MCH 28.8 MCHC 33.2 RDW 13.3 Plt Count 245 MPV 8.7 Sodium 138 Potassium 4.4 Chloride 101 Carbon Dioxide 31 Anion Gap 6 L BUN 13.6 Creatinine 1.0 Est GFR (CKD-EPI)AfAm 122.41 Est GFR (CKD-EPI)NonAf 105.62 Random Glucose 83 Calcium 9.0 Total Bilirubin 0.2 AST 18 ALT 31 Alkaline Phosphatase 107 Total Protein 7.0 Albumin 4.0 RPR Titer Nonreactive Assessment: 04/25/19 15:29 zoe portillo nad Plan: continue detox methadone taper increase po fluids
[2019-04-25] MEDS: THIAMINE HCL 100 MG TABLET (FP) PO SCH (22:06)
[2019-04-25] MEDS: SUVOREXANT 10 MG TABLET PO PRN (22:08)
[2019-04-25] MEDS: MELATONIN 5 MG TABLETS PO PRN (22:08)
[2019-04-26 06:26] VITALS: BP 104/64; PULSE 68; TEMP 97.2
[2019-04-26] MEDS ORDERED: METHADONE HCL 10 MG TABLET (FOR DETOX USE ONLY) PO ONE (10:00)
--- NOTE | 2019-04-26 10:33 | DS ---
[facility] Detox Discharge Summary Admission Date: 04/22/19 Discharge Date: 04/26/19 - History Present History: Opioid Dependence Additional Comments: 23 years old male second patient [facility] since 2019 was admitted on 04/22/19 for acute opiate withdrawal sx management doing well with methadone detox regimen no complication through out the detox regimen alert oriented x 3 lung clear bilaterally abdomen soft non tender Pertinent Past History: asthma - Physical Exam Results Vital Signs: Vital Signs Temperature 97.2 F L 04/26/19 06:26 Pulse Rate 68 04/26/19 06:26 Respiratory Rate 18 04/26/19 06:26 Blood Pressure 104/64 04/26/19 06:26 O2 Sat by Pulse Oximetry (%) Pertinent Admission Physical Exam Findings: opiate withdrawal sx Laboratory Last Values WBC 7.8 K/mm3 (4.0-10.0) 04/22/19 11:50 RBC 4.57 M/mm3 (4.00-5.60) 04/22/19 11:50 Hgb 13.2 GM/dL (11.7-16.9) 04/22/19 11:50 Hct 39.7 % (35.4-49) 04/22/19 11:50 MCV 86.8 fl (80-96) 04/22/19 11:50 MCH 28.8 pg (25.7-33.7) 04/22/19 11:50 MCHC 33.2 g/dl (32.0-35.9) 04/22/19 11:50 RDW 13.3 % (11.9-15.9) 04/22/19 11:50 Plt Count 245 K/MM3 (134-434) 04/22/19 11:50 MPV 8.7 fl (7.5-11.1) 04/22/19 11:50 Sodium 138 mmol/L (136-145) 04/22/19 11:50 Potassium 4.4 mmol/L (3.5-5.1) 04/22/19 11:50 Chloride 101 mmol/L (98-107) 04/22/19 11:50 Carbon Dioxide 31 mmol/L (21-32) 04/22/19 11:50 Anion Gap 6 MMOL/L (8-16) L 04/22/19 11:50 BUN 13.6 mg/dL (7-18) 04/22/19 11:50 Creatinine 1.0 mg/dL (0.55-1.3) 04/22/19 11:50 Est GFR (CKD-EPI)AfAm 122.41 04/22/19 11:50 Est GFR (CKD-EPI)NonAf 105.62 04/22/19 11:50 Random Glucose 83 mg/dL (74-106) 04/22/19 11:50 Calcium 9.0 mg/dL (8.5-10.1) 04/22/19 11:50 Total Bilirubin 0.2 mg/dL (0.2-1) 04/22/19 11:50 AST 18 U/L (15-37) 04/22/19 11:50 ALT 31 U/L (13-61) 04/22/19 11:50 Alkaline Phosphatase 107 U/L (45-117) 04/22/19 11:50 Total Protein 7.0 g/dl (6.4-8.2) 04/22/19 11:50 Albumin 4.0 g/dl (3.4-5.0) 04/22/19 11:50 RPR Titer Nonreactive (NONREACTIVE) 04/22/19 11:50 lab noted patient agrees to consider medication assisted treatment program - Treatment Hospital Course: Detox Protocol Followed, Detoxed Safely, Responded well, Discharged Condition Good, Rehab Referral Accepted Patient has Accepted a Rehab Referral to: medication assisted treatment - Medication Discharge Medications: Ambulatory Orders Albuterol Sulfate Inhaler - [Ventolin HFA Inhaler -] 2 puff IH Q4H PRN #1 inhaler 04/26/19 - Diagnosis (1) Nicotine dependence Status: Acute Qualifiers: Nicotine product type: cigarettes Substance use status: in withdrawal Qualified Code(s): F17.213 - Nicotine dependence, cigarettes, with withdrawal (2) Substance induced mood disorder Status: Suspected (3) Asthma Status: Chronic Qualifiers: Asthma severity: mild Asthma persistence: intermittent Asthma complication type: with status asthmaticus Qualified Code(s): J45.22 - Mild intermittent asthma with status asthmaticus (4) Opioid dependence with withdrawal Status: Acute - AMA Did Patient Leave Against Medical Advice: No COWS (PN) - Opiate Withdrawal Resting Pulse: 0= CT 80 or Below Sweatin= Chills/Flushing Restless Observation: 0= Sits Still Pupil Size: 0= Normal to Room Light Bone or Joint Aches: 1= Mild Discomfort Runny Nose/ Eye Tearin= None GI Upset > 30mins: 0= None Tremor Observation of Outstretched Hands: 1= Tremor [place], Not Seen Yawning Observation: 0= None Anxiety or Irritability: 1=Feels Anxious/Irritable Goose Flesh Skin: 0=Smooth Skin COWS Score: 4
[2019-04-27] MEDS ORDERED: METHADONE HCL 5 MG TABLET (FOR DETOX USE ONLY) PO ONE (06:00)
== END 2019-04-26 09:20 | disposition home or self-care (01) | DRG 897 ==
LOC: YASAS 09:25 → Y3N 12:11
PROVIDERS: ADMIT Surgery; ATTEND Surgery
PROC: HZ2ZZZZ Detoxification Services for Substance Abuse Treatment (ICD-10-PCS; principal; 2019-04-22)
DX: F11.23 Opioid dependence with withdrawal (principal); F19.282 Other psychoactive substance dependence with psychoactive substance-induced sleep disorder; J45.22 Mild intermittent asthma with status asthmaticus; F17.213 Nicotine dependence, cigarettes, with withdrawal; F19.24 Other psychoactive substance dependence with psychoactive substance-induced mood disorder; Z87.19 Personal history of other diseases of the digestive system
CPT/HCPCS: 36415; 80053; 85027; 86593; J0735